=== PATIENT | male | born 1995 ===

== ENCOUNTER 2017-03-01 03:31 | Emergency (ER) | payer MEDICAID ==
[2017-03-01 03:32] VITALS: BMI 22.3
[2017-03-01 03:43] VITALS: BP 136/82; RESP 18; TEMP 98.7; O2SAT 97
[2017-03-01] MEDS ORDERED: Albuterol-Ipratrop 3 mg / 0.5 (3 ml) UD INH STA ×2 (03:52→06:19)
[2017-03-01 04:36] VITALS: PULSE 84
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
--- NOTE | 2017-03-01 13:57 | CARD ---
APPROVED REPORT EKG Measurement Heart [id number] <Conclusion> Normal sinus rhythm Voltage criteria for left ventricular hypertrophy Abnormal ECG
== END 2017-03-01 06:37 | disposition home or self-care (01) ==
LOC: H.ER 03:31
DX: J45.909 Unspecified asthma, uncomplicated (principal); J70.5 Respiratory conditions due to smoke inhalation; R07.89 Other chest pain